=== PATIENT | male | born 1965 | race Caucasian/White ===

== ENCOUNTER → 2023-09-13 06:29 | Day surgery (SDC) | payer OTHER, SELFPAY | LOC: GI 06:29 | PROVIDERS: ATTENDING PHYSICIAN Internal Medicine Gastroenterology | DX: Z12.11 Encounter for screening for malignant neoplasm of colon (principal); Z86.010 Personal history of colon polyps; K64.8 Other hemorrhoids; K63.89 Other specified diseases of intestine; D12.2 Benign neoplasm of ascending colon; K62.1 Rectal polyp | CPT/HCPCS: 45385; 45380; 88305; 88341; 88342 ==

== ENCOUNTER → 2023-10-16 14:23 | Outpatient (REF) | payer OTHER, SELFPAY | LOC: HWRAD 14:23 | PROVIDERS: ATTENDING PHYSICIAN Surgery; FAMILY PHYSICIAN Family Medicine | DX: K38.9 Disease of appendix, unspecified (principal) | CPT/HCPCS: 71260; 74177; Q9967 ==

== ENCOUNTER → 2024-10-22 09:02 | Outpatient (REF) | payer OTHER, SELFPAY | LOC: HWRAD 09:02 | PROVIDERS: ATTENDING PHYSICIAN Internal Medicine Critical Care Medicine; FAMILY PHYSICIAN Family Medicine | DX: R91.1 Solitary pulmonary nodule (principal) | CPT/HCPCS: 71250 ==